=== PATIENT | male | born 1975 | race Asian ===

== ENCOUNTER 2023-03-02 18:40 | Emergency (ER) | payer OTHER ==
[2023-03-02 18:51] VITALS: BMI 22.9
[2023-03-02 21:13] LABS: BASO % 1.2 % (0-2.0); EOS % 1.2 % (0-4.5); HEMATOCRIT 37.9 % (35.4-49); HEMOGLOBIN 12.3 GM/dL (11.7-16.9); LYMPH % 19.4 % (8-40); MCH 25.6 pg (25.7-33.7); MCHC 32.5 g/dl (32.0-35.9); MEAN CELL VOLUME 78.9 fl (80-96); MEAN PLT VOLUME 8.2 fl (7.5-11.1); MONO % 6.4 % (3.8-10.2); NEUT % 71.8 % (42.8-82.8); PLATELET COUNT 206 10^3/uL (134-434); RDW 15.1 % (11.9-15.9); WHITE BLOOD COUNT 6.2 K/mm3 (4.0-10.0)
[2023-03-02 21:21] LABS: INR 0.99 (0.83-1.09); PROTHROMBIN TIME (PATIENT) 11.5 SEC (9.7-13.0)
[2023-03-02 21:36] LABS: POTASSIUM 4.1 mmol/L (3.5-5.1)
[2023-03-02 21:38] LABS: CALCIUM 9.3 mg/dL (8.5-10.1)
[2023-03-02 21:40] LABS: ALBUMIN 4.4 g/dl (3.4-5.0); BLOOD UREA NITROGEN 7.9 mg/dL (7-18)
[2023-03-02 21:42] LABS: CREATININE 0.9 mg/dL (0.55-1.3)
[2023-03-02 21:44] LABS: BILIRUBIN,TOTAL 1.3 mg/dL (0.2-1); TOT PROT 7.1 g/dl (6.4-8.2)
[2023-03-02 22:10] VITALS: BP 138/84; PULSE 78; RESP 18; TEMP 98.2
== END 2023-03-02 22:08 | disposition home or self-care (01) ==
LOC: JER 18:40
DX: R10.13 Epigastric pain (principal)
CPT/HCPCS: 36415; 80053; 84484; 85025; 85610; 85730; 93005; 93010; 99284-25